=== PATIENT | male | born 1955 | race Caucasian/White ===

== ENCOUNTER 2020-01-09 15:16 | Emergency (ER) | payer OTHER ==
--- NOTE | 2020-01-09 16:15 | RAD ---
XR Ankle Lt 3 View STANDARD History: Pain Comparison: None. Findings: Distal fibular tip fracture distal to the syndesmosis with minimal distraction. Moderate la teral malleolar soft tissue swelling. There is distal fibular diaphyseal lateral cortical thickening. Bipartite hallux sesamoid. Impression: Minimally distracted distal fibular tip fracture.
[2020-01-09] MEDS ORDERED: Acetaminophen/Codeine 30-300mg Tablet ONE (16:48)
== END 2020-01-09 17:10 | disposition home or self-care (01) ==
LOC: MADERS 15:16
DX: S82.832A Other fracture of upper and lower end of left fibula, initial encounter for closed fracture (principal); E78.1 Pure hyperglyceridemia; Z79.899 Other long term (current) drug therapy; X50.1XXA Overexertion from prolonged static or awkward postures, initial encounter
CPT/HCPCS: 29515